=== PATIENT | female | born 1990 | race Caucasian/White ===

== ENCOUNTER 2021-07-02 09:58 | Day surgery (SDC) | payer MEDICAID, SELFPAY ==
[~2021-07-02] VITALS: Ht 165.1 cm; Wt 56.7 kg
[2021-07-02 10:09] LABS: HCG,QUAL RESULT NEGATIVE (NEGATIVE)
[2021-07-02] MEDS ORDERED: HYDROmorphone 1 MG/ML INJ. CARTRIDGE IVP PRN ×2 (12:30)
[2021-07-02] MEDS ORDERED: METOCLOPRAMIDE HCL 10 MG/2 ML VIAL IVP PRN (12:30)
[2021-07-02 14:53] VITALS: BP_SYST 98
== END 2021-07-02 11:43 | disposition home or self-care (01) ==
LOC: SDS 09:58 → SMU 09:59 → SDS 11:43
PROVIDERS: ATTEND Obstetrics & Gynecology
DX: N87.1 Moderate cervical dysplasia (principal); Z20.822 Contact with and (suspected) exposure to COVID-19
CPT/HCPCS: 36415; 57522; 82962; 84703; 86886; 86900; 86901; 87426; 88305; U0003; 88307